=== PATIENT | male | born 1945 | race Caucasian/White ===

== ENCOUNTER 2021-12-07 14:13 | Outpatient (CLI) | payer MEDICARE | END 2021-12-07 14:14 | disposition home or self-care (01) | LOC: CSHCP 14:13 | PROVIDERS: ATTEND Internal Medicine Cardiovascular Disease | DX: R06.09 Other forms of dyspnea (principal); R94.2 Abnormal results of pulmonary function studies | CPT/HCPCS: 94060; 94760 ==